=== PATIENT | female | born 1935 | race Caucasian/White ===

== ENCOUNTER 2017-08-24 06:56 | Day surgery (SDC) | payer MEDICARE, BC ==
--- NOTE | 2017-08-16 12:01 | HP ---
Amended report to enter cosigning doctor. PREOPERATIVE HISTORY AND PHYSICAL: DATE OF SURGERY/ADMISSION: 08/24/17 STRUCTURAL STEEL EQUIPMENT ERECTOR: Dr. Horan. ATTENDING SURGEON: Muriel Anderson MD* (dictated by JIAN Mendenhall). PROCEDURE: Right index finger excision mass. CHIEF COMPLAINT: Right index finger masses. HISTORY OF PRESENT ILLNESS: This is an 82-year-old female, who complains of 2 lumps on the dorsal aspect of her right index finger at the DIP joint. They have been there for a couple of years. They are bothersome and she would like to have them removed. She does not have much associated pain, but they are annoying, particularly if she bumps her finger. She does not have any known history of gout and does not recall any injury to the finger. She denies any associated numbness or tingling and does not have pain with range of motion of the joint. She has consented to proceed with surgical intervention at this time in the form of a right index finger excision mass. PAST MEDICAL HISTORY: 1. AV block. 2. Left bundle-branch block. 3. Hypertension. 4. Hypercholesterolemia. 5. Hypothyroidism. 6. Chronic back pain/sciatica. 7. Memory issues. PAST SURGICAL HISTORY: 1. Pacemaker placement in 2012. 2. Bilateral eye cataract surgeries. CURRENT MEDICATIONS: 1. Aspirin 81 mg daily. 2. Duloxetine HCl 60 mg daily. 3. Hydrochlorothiazide 25 mg daily. 4. Levothyroxine sodium 112 mcg daily. 5. Lisinopril 40 mg daily. 6. Multivitamin adult daily. 7. Simvastatin 20 mg daily. ALLERGIES: No known drug allergies. FAMILY MEDICAL HISTORY: Significant for heart disease, hypertension, stroke, and cancer. SOCIAL HISTORY: The patient lives at home with her daughter and son. She is a former smoker, she quit in 2011. Prior to that she smoked since age 15, approximately half a pack a day. She denies recreational drug use and alcohol use. REVIEW OF SYSTEMS: General: Negative for fevers, chills, or night sweats. No known anesthesia problems in the past. HEENT: Negative for headache, lightheadedness, or syncopal episodes. Integumentary: Negative for abrasions, lesions, or open wounds. Cardiothoracic: Positive for hypertension. Negative for chest pain, palpitations, or edema. Pulmonary: Negative for shortness of breath with exertion, chronic cough, COPD. GI: Negative for nausea, vomiting, diarrhea, constipation, or GERD. : Negative for nocturia, urinary frequency , urgency, history of UTIs, or kidney problems. Musculoskeletal: Positive for current complaint. Positive for chronic back pain. Neurological: Positive for memory issues. Negative for paresthesias, numbness, history of seizure or stroke. Endocrine: Positive for low thyroid. Negative for diabetes. Hematologic: Negative for easy bruising, anemia, excessive bleeding, or history of DVT. Infectious Disease: Negative for history of MRSA, hepatitis C, or HIV. PHYSICAL EXAMINATION GENERAL: Well-developed, well-nourished 82-year-old female in no acute distress. VITAL SIGNS: Height 5 feet 3 inches, weight 190 pounds. Pulse rate 72, blood pressure 116/80. HEENT: Normocephalic, atraumatic. Pupils are equal, round, and reactive to light and accommodation. Extraocular movements are intact. Throat is clear. NECK: Supple. No palpable lymph nodes. PULMONARY: Lungs are clear to auscultation bilaterally. No wheezes, rales, or rhonchi. CARDIOVASCULAR: Regular rate and rhythm. S1, S2. No murmurs, rubs, or gallops. No edema. ABDOMEN: Positive bowel sounds. Soft, nontender. MUSCULOSKELETAL: On exam of her right index finger, she has 2 gouty tophi on the dorsal aspect at the DIP joint. They are nontender. She has good extension at the joint and can make a good fist. She has obvious degenerative changes of her fingers, but they are not painful. NEUROLOGICAL: Alert and oriented x3. Cranial nerves II through XII are intact. Sensation is intact to light touch. SKIN: Intact. Neurovascular function is intact. 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 ASSESSMENT: Gouty tophus right index finger x2. PLAN: The patient is scheduled to undergo a right index finger excision mass with Dr. Anderson on 08/24/17. She will return to the office 10 to 14 days postoperative followup and suture removal. A prescription for Ultracet was e- scribed to the patient's pharmacy for postoperative pain management. We will plan on getting clearance from her survey compiler, Dr. Horan, prior to proceeding with surgery. JIAN MENDENHALL [id number]/[facility] #: [id number] [facility] TIS[facility] HOSPITALSukhwinder
[~2017-08-24 06:56] MED LIST: Buffered Lidocaine 0.9% SYRIN* 5 ML/SYR SYRINGE INTRADERM ONE; Buffered Lidocaine 0.9% SYRIN* 5 ML/SYR SYRINGE ONE; Dexamethasone IV* 4 MG/ML 1 ML (4 MG) IV SLOW PU ONE; Dexamethasone IV* 4 MG/ML 1 ML (4 MG) ONE; Famotidine IV* 10 MG/ML 2 ML (20 mg) IV ONE; Famotidine IV* 10 MG/ML 2 ML (20 mg) ONE
[2017-08-24] MEDS ORDERED: Lidocaine 1% INJ* 10 MG/ML 30 ML SDV ONE (07:10)
[2017-08-24] MEDS ORDERED: Midazolam* 1 MG/ML 2 ML VIAL (2 MG) ONE (08:04)
[2017-08-24] MEDS ORDERED: fentaNYL* 50 MCG/ML 2 ML VIAL (100 MCG VIAL) ONE (08:04)
[2017-08-24] MEDS ORDERED: Ondansetron INJ* 2 MG/ML VIAL IV PRN (08:12)
[2017-08-24] MEDS ORDERED: Acetaminophen TAB* 325 MG PO PRN (08:12)
[2017-08-24] MEDS ORDERED: fentaNYL* 50 MCG/ML 2 ML VIAL (100 MCG VIAL) IV PRN (08:12)
[2017-08-24] MEDS ORDERED: HYDROcodone/ACETAMIN 5-325 MG* 1 TAB PO PRN (08:12)
[2017-08-24] MEDS ORDERED: Lidocaine 2% PF * 5 ML VIAL ONE (08:22)
[2017-08-24] MEDS ORDERED: Propofol* 10 MG/ML 20 ML BTL IV PUSH ONE (08:22)
[2017-08-24 09:08] VITALS: BP 126/57
--- NOTE | 2017-08-24 22:25 | OP ---
DATE OF OPERATION: 08/24/17 [facility] DATE OF : 33 SURGEON: Dr. Anderson. GATEHOUSE ATTENDANT: JIAN Weber ANESTHESIOLOGIST: Johanny Espinosa MD ANESTHESIA: Local MAC. PRE-OP DIAGNOSIS: Right index finger mass. PRE-OP DIAGNOSIS: Right index finger mass. OPERATIVE PROCEDURE: Removal of right index finger mass. ESTIMATED BLOOD LOSS: Zero. TOURNIQUET TIME: About 10 minutes. INDICATIONS: Apolonia is an 82-year-old female with a painful mass on the dorsal aspect of the right index finger DIP joint. She presents for removal. DESCRIPTION OF PROCEDURE: The patient was brought to the operating room, was given a sedation anesthetic and a local infiltration of 10 cc of 1% plain lidocaine as a digital block to the right index finger. The skin of the right hand and forearm was prepped and draped in the usual sterile fashion. The index finger was exsanguinated and a Tourni-Cot was placed. An H-shaped incision was made over the dorsal aspect of the DIP joint. Skin flaps were elevated. The mass appeared to be 2 gouty tophi. These were removed and sent for pathology. A rongeur and curette were used to debride the bony attachments of the tophi. The wound was irrigated and skin edges reapproximated with 4-0 nylon suture. The wound was dressed with Xeroform, 4x4, Webril, and an Coban. The patient tolerated the procedure well and was brought to the recovery room in good condition. [id number]/[facility] #: [id number] MTDD
== END 2017-08-24 09:47 | disposition home or self-care (01) ==
LOC: OREAST 06:56
PROVIDERS: ATTEND Orthopaedic Surgery
DX: M1A.9XX1 Chronic gout, unspecified, with tophus (tophi) (principal); I10 Essential (primary) hypertension; I44.7 Left bundle-branch block, unspecified; E03.9 Hypothyroidism, unspecified; E78.5 Hyperlipidemia, unspecified; Z95.0 Presence of cardiac pacemaker
CPT/HCPCS: 88304; J1100; J2001; J2250; J2704; J3010